=== PATIENT | male | born 1995 | race Hispanic/Latino ===

== ENCOUNTER 2017-09-11 09:39 | Emergency (ER) | payer BC, SELFPAY ==
--- NOTE | 2017-09-11 10:19 | RAD ---
PA AND LATERAL CHEST: HISTORY: Cough. FINDINGS: Heart size and mediastinum are within normal limits. The lungs are clear of infiltrates. No signifi cant bony findings. IMPRESSION: 1. No active intrathoracic disease. 2. Minimal scoliosis. POS: [facility]
== END 2017-09-11 10:40 | disposition home or self-care (01) ==
LOC: BURERS 09:39
DX: J11.1 Influenza due to unidentified influenza virus with other respiratory manifestations (principal)
CPT/HCPCS: 71020; 87804; 93005